=== PATIENT | male | born 1960 | race Caucasian/White ===

== ENCOUNTER 2016-11-16 05:12 | Emergency (ER) | payer SELFPAY ==
[~2016-11-16 05:12] MED LIST: "\\\"PREP SPRAY\\\"-TIN4 OZ"; ADVIL200 MG PO; ASPIRIN (CHILDR81 MG PO; ATIVAN 0.5MG0.5 MG PO; BENADRYL25 MG PO; BENICAR HCT 401 EAC1 PO; BENICAR20 MG; BENICAR20 MG PO; BIPAP; CARVEDILOL25 MG PO; CATAPRES0.1 MG PO; COLACE100 MG PO; COREG 3.1253.125 MG PO; COREG25 MG PO; CRESTOR20 MG PO; ECOTRIN81 MG PO; HYDRODIURIL12.5 MG PO; HYDRODIURIL25 MG PO; METOPROLOL SUC100 MG PO; METOPROLOL SUCC25 MG; MIRALAX17 GM PO; NITROGLYCERIN0.4 MG; PEPCID20 MG PO; PRINIVIL OR ZES10 MG PO; TOPROL XL25 MG; TYLENOL325 MG PO; ULTRAM50 MG PO; VIIBRYD20 MG PO; ZOCOR20 MG PO
== END 2016-11-16 05:52 ==
LOC: GMED 05:12
DX: Z53.21 Procedure and treatment not carried out due to patient leaving prior to being seen by health care provider (principal)

== ENCOUNTER 2017-01-22 12:27 | Emergency (ER) | payer SELFPAY ==
--- NOTE | ~2017-01-22 | ER ---
PATIENT'S NAME: TODD BARGER [facility] AGE: 56 Y [address] ROOM: [place] [id number] LOCATION: [facility] ADMIT DATE: 01/22/2017 ER/Outpatient Report DISCHARGE DATE: 01/22/2017 FAMILY PHYSICIAN: Mayank Kiran MD ATTENDING PHYSICIAN: Deandre Salamanca Time of Arrival: 1227 hours. Time of Evaluation: 1230 hours. CHIEF COMPLAINT: Chest pain. HISTORY OF PRESENT ILLNESS: This is a 56-year-old male, who presents to the ER with chest pain. The [facility], and he was telling them about his chronic chest pain, so they sent him over to the emergency room to be re-evaluated. The patient states he has chronic chest pain that never goes away. He describes it as a tightness in nature across his anterior chest wall. He states he has had this ever since he has had this open heart surgery 2 years ago. He states there has been no change in his chest pain. It does not radiate anywhere. It does not make him feel nauseated. He has had no vomiting. No diaphoresis. He states he does have chronic shortness of breath, worse when he lies down at night, and he does wear a CPAP for that as well. He states he is still smoking cigarettes. He denies any recent illness. No fever or chills. No other problems at this time. ALLERGIES: MORPHINE. MEDICATIONS: Please see medication list in nurse's notes. PAST MEDICAL HISTORY: Hypertension and coronary artery disease. PAST SURGICAL HISTORY: Three-vessel CABG. SOCIAL HISTORY: He does smoke 1 pack of cigarettes for 37+ years. He denies any drug or alcohol use. REVIEW OF SYSTEMS: All review of systems were completed and were negative with the exception of PATIENT'S NAME: TODD BARGER [facility] AGE: 56 Y [address] ROOM: [place], [place] [address] LOCATION: [facility] ADMIT DATE: 01/22/2017 ER/Outpatient Report DISCHARGE DATE: 01/22/2017 FAMILY PHYSICIAN: Mayank Kiran MD ATTENDING PHYSICIAN: Deandre Salamanca those discussed in the HPI. PHYSICAL EXAMINATION: VITAL SIGNS: Height 5 feet 9-1/2 inches stated, weight 112.2 kg taken, blood pressure is 178/96, pulse 77, respirations 18, temperature 97.9 degrees tympanically, and saturations 97% on room air. [place] Coma Score is 15. GENERAL: An alert, calm, well-developed male, in no acute distress. HEENT: Head: Normocephalic. Eyes: Pupils are equal and reactive to light. He does display moist mucous membranes. LUNGS: Clear to auscultation bilaterally. HEART: Regular rate and rhythm. ABDOMEN: Soft. It is nontender. He has good bowel sounds throughout. EXTREMITIES: No clubbing or cyanosis. He does have full range of motion of all limbs. MUSCULOSKELETAL: He does have some tenderness across his anterior chest wall with palpation. NEURO: Cranial nerves 2 through 12 grossly intact. Gait is steady with the use of a cane. LABORATORY DATA AND X-RAYS: CBC: White count is 10.6, hemoglobin 15.5, platelets 240, ANC is 7.0. INR is 0.92. CMS: BUN 26, creatinine is 1.5, estimated GFR is 49. Magnesium is 2.2. CPK is 146, CK-MB is 1.9, troponin I is less than 0.040, proBNP is 514. Second [id number] CPK is 117, CK-MB is 1.7, troponin I is less than 0.040. EKG: Mild cardiomegaly, no new infiltrate was seen. EKG shows sinus rhythm with some ST and T-wave abnormality. This was compared to previous EKGs and was consistent with his prior EKGs. IMPRESSION: 1. Chronic chest pain. 2. Chronic shortness of breath. 3. History of coronary artery disease with CABG. 4. Tobacco abuse. ASSESSMENT AND PLAN: The patient did rest comfortably here the entire stay. We did give him 4 baby aspirin while he was here. I did discuss the patient's care Dr. Salamanca. Dr. Salamanca also evaluated the patient. Once, we got his labs back, we did give him a liter of IV fluids as well. We will dismiss him to home. He needs to follow up with his primary care physician in the next 1 to 2 days for followup care. The patient understands and agrees with care. PATIENT'S NAME: TODD BARGER [facility] AGE: 56 Y [address] ROOM: [place], [place] [address] LOCATION: [facility] ADMIT DATE: 01/22/2017 ER/Outpatient Report DISCHARGE DATE: 01/22/2017 FAMILY PHYSICIAN: Mayank Kiran MD ATTENDING PHYSICIAN: Deandre Salamanca PA-C FOR DEANDRE SALAMANCA DO ACJ/modl /[id number] d: 01/23/17309 t: 01/27/17 0920, OUTPATIENT REPORT
[2017-01-22 12:58] LABS: BASOPHIL # 0.1 K/uL (0.0-0.2); BASOPHIL % 0.9 %; EOSINOPHIL # 0.4 K/uL (0.0-0.5); HEMATOCRIT 48.2 % (37.0-53.0); HEMOGLOBIN 15.5 g/dL (12.0-17.0); IMMATURE GRANULOCYTE % 0.4 %; LYMPHOCYTE # 2.3 K/uL (0.8-4.0); LYMPHOCYTE % 21.4 %; MCH 27.4 pg (27.0-34.0); MCHC 32.2 gm/dL (32.0-36.5); MCV 85.3 fl (83.0-98.0); MONOCYTE # 0.8 K/uL (0.0-1.0); MONOCYTE % 7.3 %; MPV 10.8 fl (9.4-12.4); NRBC % 0 /100WBC (0-0.00); PLATELET COUNT 240 K/uL (150-450); RBC 5.65 M/uL (4.00-6.00); RDW-CV 14.7 % (11.9-14.6); WBC 10.6 K/uL (4.0-11.0)
[2017-01-22 13:07] LABS: INR - (THERAPEUTIC) 0.92 (0.92-1.07); PROTIME 9.7 SECONDS (9.8-11.4); PTT 27 SECONDS (25-32)
[2017-01-22 13:24] LABS: ALBUMIN 3.1 gm/dL (3.5-5.0); ALK PHOS 95 IU/L (33-138); ALT 27 IU/L (12-78); ANION GAP 13.9 (10.0-19.0); AST 15 IU/L (10-40); BLOOD UREA NITROGEN 26 mg/dL (6-24); CALCIUM 7.9 mg/dL (8.5-10.5); CHLORIDE 107 mMol/L (96-110); CO2 22 mMol/L (22-32); CPK 146 IU/L (35-332); CREATININE 1.5 mg/dL (0.6-1.3); ESTIMATED GFR (MDRD EQUATION) 49; MAGNESIUM 2.2 mg/dL (1.8-2.6); POTASSIUM 3.9 mMol/L (3.7-5.1); SODIUM 139 mMol/L (135-145); TOTAL BILIRUBIN 0.4 mg/dL (0.0-1.5); TOTAL PROTEIN 7.2 g/dL (6.0-8.4)
[2017-01-22 15:25] LABS: CPK 117 IU/L (35-332)
== END 2017-01-22 15:39 | disposition disaster alternative care site (69) ==
LOC: GMED 12:27
PROVIDERS: Emergency Medicine
DX: R07.9 Chest pain, unspecified (principal); G89.29 Other chronic pain; R06.02 Shortness of breath; I10 Essential (primary) hypertension; I25.810 Atherosclerosis of coronary artery bypass graft(s) without angina pectoris; F17.210 Nicotine dependence, cigarettes, uncomplicated; Z88.5 Allergy status to narcotic agent; Z79.82 Long term (current) use of aspirin; Z79.899 Other long term (current) drug therapy

== ENCOUNTER 2017-03-11 21:21 | Emergency (ER) | payer SELFPAY ==
--- NOTE | ~2017-03-11 | ER ---
PATIENT'S NAME: TODD BARGER [facility] AGE: 56 Y [address] ROOM: [place] [address] LOCATION: [facility] ADMIT DATE: 03/11/2017 ER/Outpatient Report DISCHARGE DATE: 03/11/2017 FAMILY PHYSICIAN: Mayank Kiran MD ATTENDING PHYSICIAN: Deandre Salamanca TIME OF ARRIVAL: 2124 hours. CHIEF COMPLAINT: Bronchitis. HISTORY OF PRESENT ILLNESS: The patient is a 56-year-old male presents to the emergency department today with a chief complaint of bronchitis. He reports he has history of similar episodes in the past. He reports he feels plugged out, sore throat, fever, and achy all over. He has been coughing, coughing up white-greenish phlegm, subjective fevers, and chills. No nausea or vomiting. No diarrhea or constipation. No chest pain. Mild shortness of breath. Denies any headache. Symptoms are currently 7/10 to 8/10 in severity. PAST MEDICAL HISTORY: Heart disease, hypertension, and dyslipidemia. PAST SURGICAL HISTORY: Coronary artery bypass grafting. SOCIAL HISTORY: The patient smokes a pack per day for 37 years. Denies any alcohol or illicit drug use. ALLERGIES: NO KNOWN DRUG ALLERGIES. MEDICATIONS: Please see list. REVIEW OF SYSTEMS: All systems are reviewed by myself are negative with the exception of those discussed in HPI and past medical history. PHYSICAL EXAMINATION: VITAL SIGNS: Weight 110 kg. Blood pressure 186/92, pulse 83, respiratory rate 16, temperature 98.3, and oxygen saturation 93% on room air. GENERAL: The patient is a 56-year-old male, appears stated age, in no acute PATIENT'S NAME: TODD BARGER [facility] AGE: 56 Y [address] ROOM: [place] [address] LOCATION: [facility] ADMIT DATE: 03/11/2017 ER/Outpatient Report DISCHARGE DATE: 03/11/2017 FAMILY PHYSICIAN: Mayank Kiran MD ATTENDING PHYSICIAN: Deandre Salamanca distress. HEENT: Normocephalic, atraumatic. Pupils are equal, round, and reactive to light. Oropharynx is clear. Mucous membranes are moist. NECK: Supple. There is no nuchal rigidity. CARDIOVASCULAR: Regular rate and rhythm. No murmurs, rubs, or gallops. LUNGS: Diminished diffusely. ABDOMEN: Soft, nontender, and nondistended. No rebound, rigidity, or guarding. MUSCULOSKELETAL: The patient moves all 4 extremities. SKIN: Warm and dry. There are no rashes or lesions noted. LABS AND X-RAYS: Two-view chest x-ray is obtained, is interpreted by myself shows no acute process. IMPRESSION: 1. Acute bronchitis with suspected underlying chronic obstructive pulmonary disease. 2. Initial visit. EMERGENCY DEPARTMENT COURSE: The patient brought back to the examination room. Seen and evaluated by myself. X-ray is obtained as described above. I do suspect with the patient's long history of smoking, he does have some underlying COPD. I have written a prescription for doxycycline for home as well as prednisone and albuterol. I have discussed following up with Dr. Kiran in 2 to 3 days for reevaluation. Discussed return to care instructions including worsening symptoms or any other concerns to return to the emergency department as soon as possible. The patient is agreeable and is without further questions at this time. DISPOSITION: The patient is discharged home in good condition. DO REANNA DELACRUZ/stacia /[id number] d: 03/12/17 0157 t: 03/13/17 0533, OUTPATIENT REPORT
== END 2017-03-11 22:06 | disposition disaster alternative care site (69) ==
LOC: GMED 21:21
DX: J20.9 Acute bronchitis, unspecified (principal); I11.9 Hypertensive heart disease without heart failure; I51.9 Heart disease, unspecified; E78.5 Hyperlipidemia, unspecified; F17.210 Nicotine dependence, cigarettes, uncomplicated; Z95.1 Presence of aortocoronary bypass graft; Z79.82 Long term (current) use of aspirin; Z79.899 Other long term (current) drug therapy

== ENCOUNTER 2017-04-01 18:59 | Emergency (ER) | payer SELFPAY ==
--- NOTE | ~2017-04-01 | ER ---
PATIENT'S NAME: TODD BARGER [facility] AGE: 56 Y [address] ROOM: [place] [address] LOCATION: [facility] ADMIT DATE: 04/01/2017 ER/Outpatient Report DISCHARGE DATE: 04/01/2017 FAMILY PHYSICIAN: PHYSICIAN, NO ATTENDING PHYSICIAN: Clif Hoyt ADDENDUM: Initially, the patient was agreeable to come into the hospital, then changed his mind and wanted to leave the hospital because he had things to do this week in regards to his disability. I strongly urged him to come in the hospital and get further evaluated and tuned up in regards to his high blood pressure, his chest pain, which is suspicious for unstable angina, his kidney failure, his joint and muscle pain, shortness of breath, etc. The patient still refused to come into the hospital and wanted to go home. I did discuss the AMA form with the patient, he understands, and signed the forms. The patient left the hospital against medical advice. Again, I had a long discussion with the patient concerning his medical problems and his potential for deterioration of his health if he does not address these problems. MD LEO LIN/stacia /[id number] d: 04/02/17 0015 t: 04/02/17 1806, OUTPATIENT REPORT
--- NOTE | ~2017-04-01 | ER ---
PATIENT'S NAME: TODD BARGER [facility] AGE: 56 Y [address] ROOM: [place] [address] LOCATION: [facility] ADMIT DATE: 04/01/2017 ER/Outpatient Report DISCHARGE DATE: 04/01/2017 FAMILY PHYSICIAN: PHYSICIAN, NO ATTENDING PHYSICIAN: Clif Hoyt Admission date and time are documented in the medical record. I saw the patient at 1910 hours. CHIEF COMPLAINT: Chest pain, across his anterior chest, radiating through to his back, accompanied with shortness of breath, cough, recent bronchitis, diaphoresis, generalized weakness, dizziness, frequent falls, and fatigued. HISTORY OF PRESENT ILLNESS: This patient is a 56-year-old male who has had the anterior chest pain for about 2 weeks and it got worse today presented to the emergency room for evaluation. The patient has accompanied body aches in his muscles and joints, generalized weakness, fatigue, lightheadedness, dizziness, and frequent falls. He is short of breath, diaphoretic along with dizziness. No fever or chills. Recent bronchitis. No nausea, vomiting, diarrhea, abdominal pain, urinary frequency, urgency, or dysuria. No skin eruptions or rash. No headache, eyes, ears, nose, or throat pain. Does have midthoracic and lumbar spine pain. Does have a history of known coronary artery disease. He has had a previous myocardial infarctions. He has previous CVA. He has had a 3 to 4 vessel coronary bypass graft. Smokes a half to 2 packs of cigarettes a day. Does have depression. He has had previous suicidal ideations. No endocrine problems. Also, has obstructive sleep apnea along with COPD. HOME MEDICATIONS: See attached medication list. ALLERGIES: CONTRAST DYE. SOCIAL HISTORY: The patient smokes a half-to-two packs of cigarettes a day and nondrinker. SIGNIFICANT PAST MEDICAL HISTORY: Atherosclerotic ischemic heart disease with coronary artery disease, obstructive sleep apnea, hypertension, dyslipidemia, tobacco abuse, remote alcohol abuse, suicidal ideation with depression, cerebrovascular accident, chronic low back pain, nephrolithiasis, benign prostatic hypertrophy, cholelithiasis, and left lower lung pulmonary nodule. PATIENT'S NAME: TODD BARGER [facility] AGE: 56 Y [address] ROOM: [place] [address] LOCATION: [facility] ADMIT DATE: 04/01/2017 ER/Outpatient Report DISCHARGE DATE: 04/01/2017 FAMILY PHYSICIAN: PHYSICIAN, NO ATTENDING PHYSICIAN: Clif Hoyt OPERATIONS: Cystoscopy with stone removal, vasectomy, 3-4 vessel coronary bypass graft, lumbar laminectomy, and cardiac catheterization. REVIEW OF SYSTEMS: All systems reviewed by me are negative with the exception of those discussed in the history of present illness. PHYSICAL EXAMINATION: VITAL SIGNS: Temperature 98.9, temporal scanner, pulse 74, respirations 18, blood pressure 195/92, and O2 sat on room air is 94%. [place] Coma Scale was 15. HEAD: Normocephalic. EYES: Extraocular muscles intact. PERRL. EARS, NOSE, THROAT: Clear. Mucous membranes moist. NECK: Negative. No thyromegaly or cervical adenopathy. No tenderness. SPINE: No point tenderness. LUNGS: Decreased breath sounds diffusely. Coarse cough. HEART: Regular. Pulses are palpable. Tenderness across his anterior chest wall, questionable whether reproduces the pain he is having. ABDOMEN: Obese, soft, nondistended, nontender. Active bowel tones. No organomegaly or abnormal mass palpable. No CVA tenderness. EXTREMITIES: No peripheral edema, cyanosis, or deformity. NEUROVASCULAR: Intact. SKIN: Clear. No skin eruptions or rash. DIAGNOSTIC DATA: EKG shows sinus rhythm. No arrhythmia. Does have some T-wave inversion, ischemic changes in lateral leads, questionable septal changes, probably old. No acute ST elevation. Chest x-ray showed cardiomegaly, scarring, no acute infiltrate or changes. We will review x-ray with the radiologist. LABORATORY DATA: White count is 10,100, 65 segs, 20 lymphs, 10 monos, 4 eos, 1 baso, hemoglobin is 15.7 with hematocrit 47.7, and platelet count is 212,000. PTT was 25, pro- time is 9.4 with an INR 0.9. CMS was normal except for a low anion gap of 9.9, low calcium of 8.1, elevated BUN of 32, elevated creatinine of 1.8, low GFR of 41, magnesium 2.4, CPK was 89, [id number] cardiac enzymes were normal. CRP was 8.11. Pro-BNP was elevated 1296. Sed rate was 33. Procalcitonin was 0.15. Lactate was 0.8. D-dimer 0.85. EMERGENCY DEPARTMENT COURSE: I did give the patient 4 baby aspirin orally. I did start him on IV nitroglycerin drip with improvement in his chest discomfort; and also, gave him some morphine for pain. Overall, he was doing better. PATIENT'S NAME: TODD BARGER [facility] AGE: 56 Y [address] ROOM: [place] [address] LOCATION: [facility] ADMIT DATE: 04/01/2017 ER/Outpatient Report DISCHARGE DATE: 04/01/2017 FAMILY PHYSICIAN: PHYSICIAN, NO ATTENDING PHYSICIAN: Clif Hoyt IMPRESSION: 1. Chest pain, unstable angina, with lateral T-wave inversion and ischemic changes with some probably old septal changes on EKG. His cardiac enzymes were normal x1. Did improve with nitroglycerin intravenous. 2. Chronic kidney disease with worsening GFR, now at 41, elevated BUN at 32, creatinine 1.8. 3. Known atherosclerotic ischemic heart disease, coronary artery disease, status post 3 to 4 vessel coronary bypass graft. 4. Obstructive sleep apnea. 5. Tobacco abuse. 6. Chronic obstructive pulmonary disease. 7. Hypertension. 8. Dyslipidemia. 9. Past history of depression with suicidal ideations. 10. History of cerebrovascular accident. 11. Chronic back pain. 12. History of left lower lobe pulmonary nodule. PLAN: Again, we did give the patient 4 baby aspirin orally. Did start him on IV nitro drip. Did give him some morphine IV. He is doing better. He has a long history of coronary artery disease and now has some worsening chronic kidney disease. I did discuss the patient with Dr. Crawford, the hospitalist. Dr. Crawford is coming to the emergency room to evaluate the patient. We will probably need to put this patient in for further cardiac evaluation. Discussion ensued with the patient concerning my findings and recommendations, he understands. Accumulated critical time was 30 minutes. MD LEO LIN/modl /[id number] d: 04/01/17 2345 t: 04/02/17 1803, OUTPATIENT REPORT
[2017-04-01 19:27] LABS: BASOPHIL # 0.1 K/uL (0.0-0.2); BASOPHIL % 0.9 %; EOSINOPHIL # 0.4 K/uL (0.0-0.5); EOSINOPHIL % 3.6 %; HEMATOCRIT 47.7 % (37.0-53.0); HEMOGLOBIN 15.7 g/dL (12.0-17.0); IMMATURE GRANULOCYTE % 0.4 %; LYMPHOCYTE % 19.7 %; MCH 28.4 pg (27.0-34.0); MCHC 32.9 gm/dL (32.0-36.5); MCV 86.4 fl (83.0-98.0); MPV 11.2 fl (9.4-12.4); NEUTROPHIL # (ANC) 6.6 K/uL (1.4-9.0); NEUTROPHIL % 65.4 %; NRBC % 0 /100WBC (0-0.00); PLATELET COUNT 212 K/uL (150-450); RBC 5.52 M/uL (4.00-6.00); RDW-CV 14.9 % (11.9-14.6); WBC 10.1 K/uL (4.0-11.0)
[2017-04-01 19:36] LABS: PROTIME 9.4 SECONDS (9.8-11.4); PTT 25 SECONDS (25-32)
[2017-04-01 19:47] LABS: ALK PHOS 88 IU/L (33-138); ALT 30 IU/L (12-78); ANION GAP 9.9 (10.0-19.0); AST 17 IU/L (10-40); BLOOD UREA NITROGEN 32 mg/dL (6-24); CALCIUM 8.1 mg/dL (8.5-10.5); CHLORIDE 105 mMol/L (96-110); CO2 27 mMol/L (22-32); CPK 89 IU/L (35-332); CREATININE 1.8 mg/dL (0.6-1.3); MAGNESIUM 2.4 mg/dL (1.8-2.6); POTASSIUM 3.9 mMol/L (3.7-5.1); SODIUM 138 mMol/L (135-145); TOTAL BILIRUBIN 0.4 mg/dL (0.0-1.5)
== END 2017-04-01 20:44 | disposition disaster alternative care site (69) ==
LOC: GMED 18:59
PROVIDERS: Emergency Medicine
DX: I20.0 Unstable angina (principal); I12.9 Hypertensive chronic kidney disease with stage 1 through stage 4 chronic kidney disease, or unspecified chronic kidney disease; N18.9 Chronic kidney disease, unspecified; I25.10 Atherosclerotic heart disease of native coronary artery without angina pectoris; J44.9 Chronic obstructive pulmonary disease, unspecified; E78.5 Hyperlipidemia, unspecified; F17.210 Nicotine dependence, cigarettes, uncomplicated; G47.33 Obstructive sleep apnea (adult) (pediatric); F32.9 Major depressive disorder, single episode, unspecified; Z86.73 Personal history of transient ischemic attack (TIA), and cerebral infarction without residual deficits; Z87.442 Personal history of urinary calculi; Z95.1 Presence of aortocoronary bypass graft; Z95.828 Presence of other vascular implants and grafts; Z98.890 Other specified postprocedural states; Z79.82 Long term (current) use of aspirin; Z79.899 Other long term (current) drug therapy; Z91.041 Radiographic dye allergy status
CPT/HCPCS: J2270; J7030